=== PATIENT | male | born 1965 | race Hispanic/Latino ===

== ENCOUNTER 2021-09-10 12:53 | Emergency (ER) | payer MEDICAID ==
[2021-09-10] MEDS ORDERED: Sodium Chloride 0.9% 1000 ML 1,000 ML ONE (15:03)
[2021-09-10] MEDS: Sodium Chloride 0.9% 1000 ML 1,000 ML IV SCH (15:06)
[2021-09-10 15:12] LABS: Absolute Neutrophil Ct (ANC) 5.13 (1.4-6.9); Basophil (Absolute #) 0.05 (0-0.4); Eosinophil % 1.5 % (0.00-5.0); Eosinophil (Absolute #) 0.13 (0-0.5); Hematocrit 50.6 % (42-50); Lymphocyte (Absolute #) 2.56 (1.0-4.6); Lymphocytes % 28.6 % (24.0-44.0); Mean Cell Volume 90.2 fl (78-100); Mean Corpuscular Hemoglobin 30.3 pg (26-32); Mean Corpuscular Hgb Concent. 33.6 g/dl (32-36); Mean Platelet Volume 9.9 fl (7.5-11.0); Monocyte (Absolute #) 1.09 (0.0-1.3); Monocytes % 12.2 % (0.0-12.0); Neutrophil % 57.1 % (36.0-66.0); Platelet Count 343 K/mm3 (150-450); Red Blood Count 5.61 M/mm3 (4.1-5.6); Red Cell Distribution Width 12.7 % (11.5-14.0)
[2021-09-10 15:51] LABS: ALBUMIN 4.1 g/dL (3.5-5.0); ALKALINE PHOSPHATASE 95 U/L (38-126); ANION GAP 13.4 MEQ/L (5-15); BLOOD UREA NITROGEN 13 mg/dL (9-20); CHLORIDE 102 mmol/L (98-107); CK-Creatinine Phosphokinase 115 U/L (55-170); Calcium 9.2 mg/dL (8.4-10.2); Carbon Dioxide 25 mmol/L (22-30); Creatinine 1 0.74 mg/dL (0.66-1.25); EST GLOMERULAR FILTRATION RATE > 60.0 ML/MIN; Glucose 242 mg/dL (74-106); Potassium 4.9 mmol/L (3.5-5.1); SGOT/AST 27 U/L (17-59); SGPT/ALT 40 U/L (0-50); SODIUM 135 mmol/L (137-145); Total Protein 7.1 g/dL (6.3-8.2)
--- NOTE | 2021-09-10 16:35 | XRAY ---
Indication: Chest pain. Comparison: None Portable apical lordotic chest is clear. Heart and mediastinal structures within normal limits. Bony thorax intact with mild osteopenia and degenerative changes. Impression: Nonacute chest.
--- NOTE | 2021-09-10 17:10 | ERPHSYRPT ---
- History of Present Illness Time Seen by Provider: 09/10/21 13:30 Source: patient Exam Limitations: no limitations Patient Subjective Stated Complaint: Pt states "I started this new medication and all of a sudden my right arm went numb and my hand went purple, my vision b lurred and my arm was cold." Triage Nursing Assessment: Pt presented alert and oriented X 3, skin wpd Pt ambulates with an uprigth steady gait, able to speak in clear full setnences. PT right arm is cold, tender, Physician History: Patient is a 56-year-old male presents to emergency department for evaluation of right arm discoloration and a cold sensation of his right arm. Symptoms started last week after initiating Metformin for diabetes. Patient believes the Metformin caused his symptoms. 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 Patient states that this discoloration of his right upper extremity has resolved. However he still feels as though his right upper extremity is cold. Patient has no other complaints. No chest pain or shortness of breath. No nausea vomiting or diaphoresis. Symptoms are mild to moderate in intensity. Patient voices no other complaints or concerns at this time. Timing/Duration: week(s) (1 week) Severity: moderate Modifying Factors: Improves With: other (Patient believes Metformin caused the symptoms.) Associated Symptoms: denies symptoms Allergies/Adverse Reactions: ethinyl estradiol [From Seasonale ()] Adverse Reaction (Mild, Verified 09/10/21 13:39) levonorgestrel [From Seasonale ()] Adverse Reaction (Mild, Verified 09/10/21 13:39) Home Medications: Diclofenac Sodium [Voltaren Arthritis Pain] 100 gm TP 09/10/21 [History] Metformin HCl [Metformin ER Osmotic] 500 mg PO BID 09/10/21 [History] Silodosin 8 mg PO HS 09/10/21 [History] Hx Tetanus, Diphtheria Vaccination/Date Given: Yes Hx Influenza Vaccination/Date Given: No Hx Pneumococcal Vaccination/Date Given: No Immunizations Up to Date: Yes Travel Risk - International Travel Have you traveled outside of the country in past 3 weeks: No - Coronavirus Screening Are you exhibiting any of the following symptoms?: No Close contact with a COVID-19 positive Pt in past 14-21 Days: No - Vaccine Status Have you recieved a Covid-19 vaccination: No - Review of Systems Constitutional: No Symptoms, No Fever, No Chills Eyes: No Symptoms Ears, Nose, & Throat: No Symptoms Respiratory: No Symptoms, No Cough, No Dyspnea Cardiac: No Symptoms, No Chest Pain, No Edema, No Syncope Abdominal/Gastrointestinal: No Symptoms, No Abdominal Pain, No Nausea, No Vomiting, No Diarrhea Genitourinary Symptoms: No Symptoms, No Dysuria Musculoskeletal: No Symptoms, No Back Pain, No Neck Pain Skin: No Symptoms, No Rash Neurological: No Symptoms, No Dizziness, No Focal Weakness, No Sensory Changes Psychological: No Symptoms Endocrine: No Symptoms Hematologic/Lymphatic: No Symptoms Immunological/Allergic: No Symptoms All Other Systems: Reviewed and Negative - Past Medical History Pertinent Past Medical History: Yes Neurological History: No Pertinent History ENT History: No Pertinent History Cardiac History: No Pertinent History Respiratory History: No Pertinent History Endocrine Medical History: Diabetes Type II Musculoskeletal History: Arthritis GI Medical History: No Pertinent History History: Renal Disease Psycho-Social History: Anxiety, Depression Male Reproductive Disorders: No Pertinent History - Past Surgical History Past Surgical History: Yes Other Surgical History: back - Social History Smoking Status: Never smoker Exposure to second hand smoke: No Drug Use: none Patient Lives Alone: No - Nursing Vital Signs Nursing Vital Signs: Initial Vital Signs Temperature 97.7 F 09/10/21 13:24 Pulse Rate 99 H 09/10/21 13:24 Respiratory Rate 20 09/10/21 13:24 Blood Pressure 145/85 09/10/21 13:24 O2 Sat by Pulse Oximetry 99 09/10/21 13:24 Pain Scale Pain Intensity 3 - Physical Exam General Appearance: no apparent distress, alert Eye Exam: PERRL/EOMI, eyes nml inspection Ears, Nose, Throat Exam: normal ENT inspection, TMs normal, pharynx normal, moist mucous membranes Neck Exam: normal inspection, non-tender, supple, full range of motion Respiratory Exam: normal breath sounds, lungs clear, airway intact, No respiratory distress Cardiovascular Exam: regular rate/rhythm, normal heart sounds, normal peripheral pulses Gastrointestinal/Abdomen Exam: soft, normal bowel sounds, No tenderness, No mass Back Exam: normal inspection, normal range of motion, No CVA tenderness, No vertebral tenderness Extremity Exam: normal inspection, normal range of motion, pelvis stable Neurologic Exam: alert, oriented x 3, cooperative, normal mood/affect, nml cerebellar function, nml station & gait, sensation nml, No motor deficits Skin Exam: normal color, warm, dry, No rash Lymphatic Exam: No adenopathy SpO2 Interpretation: normal SpO2: 98 O2 Delivery: Room Air - Course Nursing assessment & vital signs reviewed: Yes EKG Interpreted by Me: RATE (89, old inferior infarct), Sinus Rhythm, NORMAL AXIS, NORMAL INTERVALS - Radiology Exams Other X-ray Interpretation: Teleradiologist Report (No comps Limited exam due to motion occluded right subclavian artery with reconstitution mid subclavian level. Normal CT a of the axilla brachial and radial arteries. Nonvisualizat ion of the ulnar artery. Recommend dedicated angiogram. Also nonoccluding right upper lobe PE) Ordered Tests: Active Orders 24 hr Category Date Time Status Cable Supervisor STAT Care 09/10/21 14:48 Active EKG-ER Only STAT Care 09/10/21 14:47 Active IV Insertion STAT Care 09/10/21 14:47 Active Pulse Oximetry (ED) STAT Care 09/10/21 14:47 Active CHEST 1 VIEW (PORTABLE) Routine Exams 09/10/21 15:25 Completed CTA UPPER EXTREMITY W/CONTRAST [CT] Stat Exams 09/10/21 18:19 Taken CBC W DIFF Stat Lab 09/10/21 15:00 Completed CK-Creatinine Phosphokinase Stat Lab 09/10/21 15:00 Completed CMP Stat Lab 09/10/21 15:00 Completed PROTIME WITH INR Stat Lab 09/10/21 20:24 Completed PTT Stat Lab 09/10/21 20:24 Completed TROPONIN Q3H Lab 09/10/21 15:00 Completed TROPONIN Q3H Lab 09/10/21 18:27 Completed TROPONIN Q3H Lab 09/10/21 21:00 Received TROPONIN Q3H Lab 09/11/21 00:00 Ordered TROPONIN Q3H Lab 09/11/21 03:00 Ordered Medication Summary Generic Name Dose Route Start Last Admin Trade Name Freq PRN Reason Stop Dose Admin Sodium Chloride 1,000 mls @ 100 mls/hr 09/10/21 15:00 09/10/21 15:06 Sodium Chloride 0.9% 1000 Ml IV 10/10/21 14:59 100 mls/hr .Q10H JANICE Administration Discontinued Medications Generic Name Dose Route Start Last Admin Trade Name Freq PRN Reason Stop Dose Admin Heparin Sodium (Beef Lung) Confirm 09/10/21 20:16 Heparin 5000 Unit/0.5 Ml Syringe Administered 09/10/21 20:17 Dose 5,000 unit .ROUTE .STK-MED ONE Heparin Sodium/Dextrose Confirm 09/10/21 20:17 Heparin 25,000 Units/D5w 250ml Premix Administered 09/10/21 20:18 Dose 25,000 units in 250 mls @ ud IV .STK-MED ONE Lab/Rad Data: Laboratory Result Diagrams 09/10/21 15:00 09/10/21 15:00 Laboratory Results 09/10/21 09/10/21 09/10/21 Range/Units 20:24 18:27 16:55 WBC (4.0-10.5) K/mm3 RBC (4.1-5.6) M/mm3 Hgb (12.5-18.0) gm/dl Hct (42-50) % MCV (78-100) fl MCH (26-32) pg MCHC (32-36) g/dl RDW (11.5-14.0) % Plt Count (150-450) K/mm3 MPV (7.5-11.0) fl Gran % (36.0-66.0) % Eos # (Auto) (0-0.5) Absolute Lymphs (auto) (1.0-4.6) Absolute Monos (auto) (0.0-1.3) Lymphocytes % (24.0-44.0) % Monocytes % (0.0-12.0) % Eosinophils % (0.00-5.0) % Basophils % (0.0-0.4) % Absolute Granulocytes (1.4-6.9) Basophils # (0-0.4) PT 11.0 (9.4-12.5) SECONDS INR 0.93 (0.8-3.0) APTT 37.8 H (25.1-36.5) SECONDS Sodium (137-145) mmol/L Potassium (3.5-5.1) mmol/L Chloride (98-107) mmol/L Carbon Dioxide (22-30) mmol/L Anion Gap (5-15) MEQ/L BUN (9-20) mg/dL Creatinine (0.66-1.25) mg/dL Estimated GFR ML/MIN Glucose (74-106) mg/dL Calcium (8.4-10.2) mg/dL Total Bilirubin (0.2-1.3) mg/dL AST (17-59) U/L ALT (0-50) U/L Alkaline Phosphatase (38-126) U/L Creatine Kinase (55-170) U/L Troponin I < 0.012 (0.000-0.034) ng/mL Serum Total Protein (6.3-8.2) g/dL Albumin (3.5-5.0) g/dL Urinalys Dipstick Clnc MAIN LAB Urine Color YELLOW (YELLOW) Urine Appearance CLEAR (CLEAR) Urine pH 5.0 (5-6) Ur Specific [place] >=1.030 (1.005-1.025) POC Urine Protein Conf TRACE (Negative) Urine Ketones NEGATIVE (NEGATIVE) Urine Nitrite NEGATIVE (NEGATIVE) Urine Bilirubin NEGATIVE (NEGATIVE) Urine Urobilinogen 0.2 (0-1) mg/dL Urine Leukocytes NEGATIVE (NEGATIVE) Urine WBC (Auto) 0-2 (0-5) /HPF Urine RBC (Auto) 0-2 (0-2) /HPF U Epithel Cells (Auto) NONE (FEW) /HPF Urine Bacteria (Auto) NONE (NEGATIVE) /HPF Urine RBC SMALL (0-5) [place]/ul Urine Mucus (Auto) SLIGHT (NEGATIVE) /HPF Ur Culture Indicated? NO Urine Glucose 500 (NEGATIVE) mg/dL 09/10/21 09/10/21 09/10/21 Range/Units 15:00 15:00 15:00 WBC 9.0 (4.0-10.5) K/mm3 RBC 5.61 H (4.1-5.6) M/mm3 Hgb 17.0 (12.5-18.0) gm/dl Hct 50.6 H (42-50) % MCV 90.2 (78-100) fl MCH 30.3 (26-32) pg MCHC 33.6 (32-36) g/dl RDW 12.7 (11.5-14.0) % Plt Count 343 (150-450) K/mm3 MPV 9.9 (7.5-11.0) fl Gran % 57.1 (36.0-66.0) % Eos # (Auto) 0.13 (0-0.5) Absolute Lymphs (auto) 2.56 (1.0-4.6) Absolute Monos (auto) 1.09 (0.0-1.3) Lymphocytes % 28.6 (24.0-44.0) % Monocytes % 12.2 H (0.0-12.0) % Eosinophils % 1.5 (0.00-5.0) % Basophils % 0.6 (0.0-0.4) % Absolute Granulocytes 5.13 (1.4-6.9) Basophils # 0.05 (0-0.4) PT (9.4-12.5) SECONDS INR (0.8-3.0) APTT (25.1-36.5) SECONDS Sodium 135 L (137-145) mmol/L Potassium 4.9 (3.5-5.1) mmol/L Chloride 102 (98-107) mmol/L Carbon Dioxide 25 (22-30) mmol/L Anion Gap 13.4 (5-15) MEQ/L BUN 13 (9-20) mg/dL Creatinine 0.74 (0.66-1.25) mg/dL Estimated GFR > 60.0 ML/MIN Glucose 242 H (74-106) mg/dL Calcium 9.2 (8.4-10.2) mg/dL Total Bilirubin 0.60 (0.2-1.3) mg/dL AST 27 (17-59) U/L ALT 40 (0-50) U/L Alkaline Phosphatase 95 (38-126) U/L Creatine Kinase 115 (55-170) U/L Troponin I < 0.012 (0.000-0.034) ng/mL Serum Total Protein 7.1 (6.3-8.2) g/dL Albumin 4.1 (3.5-5.0) g/dL Urinalys Dipstick Clnc Urine Color (YELLOW) Urine Appearance (CLEAR) Urine pH (5-6) Ur Specific [place] (1.005-1.025) POC Urine Protein Conf (Negative) Urine Ketones (NEGATIVE) Urine Nitrite (NEGATIVE) Urine Bilirubin (NEGATIVE) Urine Urobilinogen (0-1) mg/dL Urine Leukocytes (NEGATIVE) Urine WBC (Auto) (0-5) /HPF Urine RBC (Auto) (0-2) /HPF U Epithel Cells (Auto) (FEW) /HPF Urine Bacteria (Auto) (NEGATIVE) /HPF Urine RBC (0-5) [place]/ul Urine Mucus (Auto) (NEGATIVE) /HPF Ur Culture Indicated? Urine Glucose (NEGATIVE) mg/dL - Progress Progress: improved Progress Note: Case discussed with Dr. Mazariegos of [facility] who accepts transfer. We attempted regional as well however regional declined transfer as they did not have vascular surgery available. Heparin drip started. Plan of care discussed with patient. He agrees to transfer to [facility] for further evaluation and treatment. Portions of this note were created with voice recognition technology. There may be grammatical, spelling, punctuation or sound alike errors 09/10/21 21:28 Counseled pt/family regarding: lab results, diagnosis, rad results - Departure Departure Disposition: Transfer Clinical Impression: Pulmonary embolism, Occluded Rt subclav. art w reconstitutio Condition: Stable Critical Care Time: No Referrals: DOCTOR,NO FAMILY [Primary Care Provider] - Follow up/PCP as directed
[2021-09-10 17:15] LABS: Mucus SLIGHT /HPF (NEGATIVE); RBC 0-2 /HPF (0-2); WBC 0-2 /HPF (0-5)
[2021-09-10 17:17] LABS: Appearance CLEAR (CLEAR); Bilirubin NEGATIVE (NEGATIVE); Glucose 500 mg/dL (NEGATIVE); Ketones NEGATIVE (NEGATIVE); Nitrite NEGATIVE (NEGATIVE); Protein,Urine Dip TRACE (Negative); RBC SMALL Ery/ul (0-5); Specific Gravity >=1.030 (1.005-1.025); Urobilinogen 0.2 mg/dL (0-1)
[2021-09-10 17:18] LABS: Dipstick done @ ? MAIN LAB; Urine Cultured Indicated? NO
[2021-09-10] MEDS ORDERED: Heparin 5000 UNITS/0.5 ML (HIGH RISK MED) ONE (20:16)
[2021-09-10] MEDS ORDERED: Heparin 25,000 units/D5W 250ML PREMIX 25,000 UNITS/250 ML BAG IV ONE (20:17)
[2021-09-10 20:26] VITALS: O2SAT 98
[2021-09-10 20:33] LABS: INR 0.93 (0.8-3.0)
[2021-09-10 20:35] LABS: PTT 37.8 SECONDS (25.1-36.5)
[2021-09-10 21:38] VITALS: BP 148/100; PULSE 76
[2021-09-10 21:56] LABS: INFLUENZA A NEGATIVE (NEGATIVE); INFLUENZA B NEGATIVE (NEGATIVE); RESPIRATORY SYNCTIAL VIRUS NEGATIVE (Negative); SARS-CoV-2 Xpert Express NEGATIVE (NEGATIVE)
--- NOTE | 2021-09-11 08:37 | XRAY ---
Indication: Sciatic right arm. Intermittent cold and numbness one week. No known injury. Conventional CTA right upper extremity was performed using 100 cc Isovue 370 contrast. Two-dimensional sagittal and coronal reformatted images obtained. Additional three-dimensional reformatted images obtained using separate workstation. Comparison: None Several images are degraded by motion artifact. Visualized aortic arch demonstrates normal patent branching right brachycephalic, left common carotid, and left subclavian arteries. Origin and proximal right subclavian artery is occluded. There is reconstitution at the level of the mid subclavian artery. More upper extremity arteries are attenuated without critical stenosis/obstruction. At the level of the forearm, only the radial artery is visualized. Ulnar artery presumed occluded. Visualized right lung clear. Incidental nonoccluding pulmonary emboli seen in the right upper lobe pulmonary artery. Mild degenerative changes throughout the thoracic spine. No acute fracture or suspicious bony lesions. Limited upper abdomen demonstrates right mid renal cortical thinning/scarring. Impression: 1. Occluded origin/proximal right subclavian and ulnar arteries. 2. Incidental nonoccluding right upper lobe pulmonary emboli.
== END 2021-09-10 22:12 | disposition short-term general hospital (02) ==
LOC: ED 12:53
DX: I26.99 Other pulmonary embolism without acute cor pulmonale (principal); I74.2 Embolism and thrombosis of arteries of the upper extremities; I70.8 Atherosclerosis of other arteries; E11.9 Type 2 diabetes mellitus without complications; Z79.899 Other long term (current) drug therapy
CPT/HCPCS: 0241U; 36000; 36415; 71045; 73206; 80053; 81015; 82550; 84484; 85025; 85610; 85730; 93005; 93041; 94760; 99285; J1644

== ENCOUNTER 2022-10-28 20:46 | Emergency (ER) | payer OTHER ==
[2022-10-28 21:46] LABS: Absolute Neutrophil Ct (ANC) 15.53 x10^3/uL (1.4-6.9); BASOPHIL % 0.4 % (0.0-0.4); Basophil (Absolute #) 0.08 x10^3/uL (0-0.4); Eosinophil % 0.3 % (0.00-5.0); Eosinophil (Absolute #) 0.07 x10^3/uL (0-0.5); Hematocrit 52.8 % (42-50); Hemoglobin 17.3 g/dL (12.5-18.0); IMMATURE GRAN # 0.19 x10^3u/L (0.00-0.03); IMMATURE GRAN % 0.9 % (0.00-0.4); Lymphocyte (Absolute #) 2.74 x10^3/uL (1.0-4.6); Lymphocytes % 13.2 % (24.0-44.0); Mean Cell Volume 89.2 fL (78-100); Mean Corpuscular Hemoglobin 29.2 pg (26-32); Mean Corpuscular Hgb Concent. 32.8 g/dL (32-36); Mean Platelet Volume 10.2 fL (7.5-11.0); Monocytes % 10.6 % (0.0-12.0); Neutrophil % 74.6 % (36.0-66.0); Platelet Count 276 x10^3/uL (150-450); Red Blood Count 5.92 x10^6/uL (4.1-5.6); White Blood Count 20.8 x10^3/uL (4.0-10.5)
[2022-10-28 22:00] LABS: ALKALINE PHOSPHATASE 103 U/L (38-126); ANION GAP 18.3 MEQ/L (5-15); BLOOD UREA NITROGEN 25 mg/dL (9-20); CHLORIDE 93 mmol/L (98-107); Calcium 9.2 mg/dL (8.4-10.2); Carbon Dioxide 27 mmol/L (22-30); Creatinine 1 1.13 mg/dL (0.66-1.25); EST GLOMERULAR FILTRATION RATE > 60.0 ML/MIN; Glucose 371 mg/dL (74-106); LIPASE 95 U/L (23-300); Potassium 4.6 mmol/L (3.5-5.1); SGOT/AST 33 U/L (17-59); SGPT/ALT 25 U/L (0-50); SODIUM 134 mmol/L (137-145); Total Protein 7.5 g/dL (6.3-8.2)
[2022-10-28] MEDS ORDERED: Sodium Chloride 0.9% 1000 ML 1,000 ML IV STA (22:34)
[2022-10-28] MEDS ORDERED: PIPERACILLIN/TAZOBACTAM 3.375 GM in Sodium Chloride 100ML MINI-BAG PLUS 100 ML IV ONE (22:35)
--- NOTE | 2022-10-28 22:45 | ERPHSYRPT ---
- History of Present Illness Time Seen by Provider: 10/28/22 22:40 Source: patient Exam Limitations: no limitations Patient Subjective Stated Complaint: pt states that my shoulder has been hurting for weeks Triage Nursing Assessment: pt ambulated into er; pt is axo x4; c/o left shoulder pain; pt denies injury or trauma to LUE; LUE is cool to the touch; left radial pulse present; good cap refill to LUE; hypertensive; tachycardic; no respiratory distress present Physician History: Patient is a 57-year-old male presents to our ED with multiple complaints. Patient states his left shoulder left leg and abdomen have been hurting for approximately 1 month. Pain is constant. No trauma. No fever. No nausea or vomiting. Patient abdominal pain is mostly in the epigastric region. Patient denies chest pain. No nausea vomiting or diaphoresis. Symptoms are progressive. Symptoms are moderate in intensity. Palpation to the epigastrium reproduces pain. Pain at the left upper or lower extremities are not reproduci ble. Patient declined pain medication. Patient has a resting tachycardia observed on security monitor. Heart rate approximately 110-115. Patient reports a history of diabetes. He states he is otherwise healthy. He voices no other complaints or concerns at this time. Portions of this note were created with voice recognition technology. There may be grammatical, spelling, punctuation or sound alike errors Timing/Duration: week(s) (1 month) Severity: moderate Modifying Factors: Improves With: nothing Associated Symptoms: denies symptoms Allergies/Adverse Reactions: ethinyl estradiol [From Seasonale ()] Adverse Reaction (Mild, Verified 10/28/22 20:56) levonorgestrel [From Seasonale ()] Adverse Reaction (Mild, Verified 10/28/22 20:56) Home Medications: Metformin HCl [Metformin ER Osmotic] 1,000 mg PO BID 09/10/21 [History] Cetirizine HCl 10 mg PO DAILY 10/28/22 [History] Dicyclomine HCl 20 mg [Bentyl 20 mg] 10 mg PO Q6HPRN PRN 10/28/22 [History] Pantoprazole Sodium [Protonix] 40 mg PO 10/28/22 [History] Hx Tetanus, Diphtheria Vaccination/Date Given: Yes Hx Influenza Vaccination/Date Given: No Hx Pneumococcal Vaccination/Date Given: No Travel Risk - International Travel Have you traveled outside of the country in past 3 weeks: No - Coronavirus Screening Are you exhibiting any of the following symptoms?: No Close contact with a COVID-19 positive Pt in past 14-21 Days: No - Vaccine Status Have you recieved a Covid-19 vaccination: No - Review of Systems Constitutional: No Symptoms, No Fever, No Chills Eyes: No Symptoms Ears, Nose, & Throat: No Symptoms Respiratory: No Symptoms, No Cough, No Dyspnea Cardiac: No Symptoms, No Chest Pain, No Edema, No Syncope Abdominal/Gastrointestinal: No Symptoms, No Abdominal Pain, No Nausea, No Vomiting, No Diarrhea Genitourinary Symptoms: No Symptoms, No Dysuria Musculoskeletal: No Symptoms, No Back Pain, No Neck Pain Skin: No Symptoms, No Rash Neurological: No Symptoms, No Dizziness, No Focal Weakness, No Sensory Changes Psychological: No Symptoms Endocrine: No Symptoms Hematologic/Lymphatic: No Symptoms Immunological/Allergic: No Symptoms All Other Systems: Reviewed and Negative - Past Medical History Pertinent Past Medical History: Yes Neurological History: No Pertinent History ENT History: No Pertinent History Cardiac History: No Pertinent History Respiratory History: No Pertinent History Endocrine Medical History: Diabetes Type II Musculoskeletal History: Arthritis GI Medical History: No Pertinent History History: Renal Disease Psycho-Social History: Anxiety, Depression Male Reproductive Disorders: No Pertinent History - Past Surgical History Past Surgical History: Yes Musculoskeletal: Orthopedic Surgery Other Surgical History: back, left knee - Social History Smoking Status: Former smoker Exposure to second hand smoke: No Drug Use: none Patient Lives Alone: No - Nursing Vital Signs Nursing Vital Signs: Initial Vital Signs Temperature 97.6 F 10/28/22 21:02 Pulse Rate 117 H 10/28/22 21:02 Respiratory Rate 18 10/28/22 21:02 Blood Pressure 144/125 10/28/22 21:02 O2 Sat by Pulse Oximetry 96 10/28/22 21:02 Pain Scale Pain Intensity [] 10 Pain Intensity 10 - Physical Exam General Appearance: no apparent distress, alert Eye Exam: PERRL/EOMI, eyes nml inspection Ears, Nose, Throat Exam: normal ENT inspection, TMs normal, pharynx normal, moist mucous membranes Neck Exam: normal inspection, non-tender, supple, full range of motion Respiratory Exam: normal breath sounds, lungs clear, airway intact, No respiratory distress Cardiovascular Exam: regular rate/rhythm, normal heart sounds, normal peripheral pulses Gastrointestinal/Abdomen Exam: soft, normal bowel sounds, No tenderness, No mass Back Exam: normal inspection, normal range of motion, No CVA tenderness, No vertebral tenderness Extremity Exam: normal inspection, normal range of motion, pelvis stable Neurologic Exam: alert, oriented x 3, cooperative, normal mood/affect, nml cerebellar function, nml station & gait, sensation nml, No motor deficits Skin Exam: normal color, warm, dry, No rash Lymphatic Exam: No adenopathy SpO2 Interpretation: normal SpO2: 94 O2 Delivery: Room Air - Course Nursing assessment & vital signs reviewed: Yes - CT Exams Abdomen/Pelvis CT Interpretation: Tele-radiologist Report (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) Ordered Tests: Active Orders 24 hr Category Date Time Status IV Insertion STAT Care 10/28/22 21:35 Active ABDOMEN AND PELVIS W CONTRAST [CT] Stat Exams 10/28/22 22:33 Completed CBC W DIFF Stat Lab 10/28/22 21:43 Completed CMP Stat Lab 10/28/22 21:43 Completed LIPASE Stat Lab 10/28/22 21:43 Completed TROPONIN Q4H Lab 10/28/22 21:43 Completed TROPONIN Q4H Lab 10/29/22 01:27 Completed TROPONIN Q4H Lab 10/29/22 05:45 Ordered Medication Summary Discontinued Medications Generic Name Dose Route Start Last Admin Trade Name Freq PRN Reason Stop Dose Admin Sodium Chloride 1,000 mls @ 999 mls/hr 10/28/22 22:34 10/29/22 00:39 Sodium Chloride 0.9% 1000 Ml IV 10/28/22 23:34 Infused .Q1H1M STA Infusion Piperacillin Sod/Tazobactam 100 mls @ 200 mls/hr 10/28/22 22:35 10/28/22 22:48 Sod 3.375 gm/ Sodium Chloride IV 10/28/22 23:04 200 mls/hr STAT ONE Administration Sodium Chloride Confirm 10/28/22 22:47 Sodium Chloride 100ml Mini-Bag Plus Administered 10/28/22 22:48 Dose 100 mls @ ud IV .STK-MED ONE Sodium Chloride Confirm 10/28/22 22:47 Sodium Chloride 0.9% 1000 Ml Administered 10/28/22 22:48 Dose 1,000 mls @ ud .ROUTE .STK-MED ONE Piperacillin Sod/Tazobactam Sod Confirm 10/28/22 22:46 Piperacillin/Tazobactam Sodium 3.375 Gm Vial Administered 10/28/22 22:47 Dose 3.375 gm IV .STK-MED ONE Lab/Rad Data: Laboratory Result Diagrams 10/28/22 21:43 10/28/22 21:43 Laboratory Results 10/29/22 10/28/22 10/28/22 Range/Units 01:27 21:43 21:43 WBC (4.0-10.5) x10^3/uL RBC (4.1-5.6) x10^6/uL Hgb (12.5-18.0) g/dL Hct (42-50) % MCV (78-100) fL MCH (26-32) pg MCHC (32-36) g/dL RDW (11.5-14.0) % Plt Count (150-450) x10^3/uL MPV (7.5-11.0) fL Gran % (36.0-66.0) % Immature Gran % (Auto) (0.00-0.4) % Nucleat RBC Rel Count (0.00-0.1) % Eos # (Auto) (0-0.5) x10^3/uL Immature Gran # (Auto) (0.00-0.03) x10^3u/L Absolute Lymphs (auto) (1.0-4.6) x10^3/uL Absolute Monos (auto) (0.0-1.3) x10^3/uL Absolute Nucleated RBC (0.00-0.01) x10^3u/L Lymphocytes % (24.0-44.0) % Monocytes % (0.0-12.0) % Eosinophils % (0.00-5.0) % Basophils % (0.0-0.4) % Absolute Granulocytes (1.4-6.9) x10^3/uL Basophils # (0-0.4) x10^3/uL Sodium 134 L (137-145) mmol/L Potassium 4.6 (3.5-5.1) mmol/L Chloride 93 L (98-107) mmol/L Carbon Dioxide 27 (22-30) mmol/L Anion Gap 18.3 H (5-15) MEQ/L BUN 25 H (9-20) mg/dL Creatinine 1.13 (0.66-1.25) mg/dL Estimated GFR > 60.0 ML/MIN Glucose 371 H (74-106) mg/dL Calcium 9.2 (8.4-10.2) mg/dL Total Bilirubin 1.00 (0.2-1.3) mg/dL AST 33 (17-59) U/L ALT 25 (0-50) U/L Alkaline Phosphatase 103 (38-126) U/L Troponin I < 0.012 < 0.012 (0.000-0.034) ng/mL Serum Total Protein 7.5 (6.3-8.2) g/dL Albumin 4.0 (3.5-5.0) g/dL Lipase 95 (23-300) U/L / Range/Units 21:43 WBC 20.8 H (4.0-10.5) x10^3/uL RBC 5.92 H (4.1-5.6) x10^6/uL Hgb 17.3 (12.5-18.0) g/dL Hct 52.8 H (42-50) % MCV 89.2 (78-100) fL MCH 29.2 (26-32) pg MCHC 32.8 (32-36) g/dL RDW 12.0 (11.5-14.0) % Plt Count 276 (150-450) x10^3/uL MPV 10.2 (7.5-11.0) fL Gran % 74.6 H (36.0-66.0) % Immature Gran % (Auto) 0.9 H (0.00-0.4) % Nucleat RBC Rel Count 0.0 (0.00-0.1) % Eos # (Auto) 0.07 (0-0.5) x10^3/uL Immature Gran # (Auto) 0.19 H (0.00-0.03) x10^3u/L Absolute Lymphs (auto) 2.74 (1.0-4.6) x10^3/uL Absolute Monos (auto) 2.20 H (0.0-1.3) x10^3/uL Absolute Nucleated RBC 0.00 (0.00-0.01) x10^3u/L Lymphocytes % 13.2 L (24.0-44.0) % Monocytes % 10.6 (0.0-12.0) % Eosinophils % 0.3 (0.00-5.0) % Basophils % 0.4 (0.0-0.4) % Absolute Granulocytes 15.53 H (1.4-6.9) x10^3/uL Basophils # 0.08 (0-0.4) x10^3/uL Sodium (137-145) mmol/L Potassium (3.5-5.1) mmol/L Chloride (98-107) mmol/L Carbon Dioxide (22-30) mmol/L Anion Gap (5-15) MEQ/L BUN (9-20) mg/dL Creatinine (0.66-1.25) mg/dL Estimated GFR ML/MIN Glucose (74-106) mg/dL Calcium (8.4-10.2) mg/dL Total Bilirubin (0.2-1.3) mg/dL AST (17-59) U/L ALT (0-50) U/L Alkaline Phosphatase (38-126) U/L Troponin I (0.000-0.034) ng/mL Serum Total Protein (6.3-8.2) g/dL Albumin (3.5-5.0) g/dL Lipase (23-300) U/L - Progress Progress: improved Progress Note: Case discussed with on-call general surgery who feels patient should be transferred. Patient has a history of blood clots. Patient has not been on his Coumadin. Patient will likely require angiogram. 10/29/22 00:[address] Sanchez general surgeon at [facility] who accepts transfer. We will keep patient n.p.o. 10/29/22 01:08 57-year-old male presents to our ED for evaluation of abdominal pain. Patient states abdominal pain started approximately 3 weeks ago. Patient states the pain was severe. Patient states today he developed ongoing abdominal pain coupled with some pain in his left arm and left leg. On exam his left arm was somewhat cool to touch. However radial pulse palpable. Cap refill less than 2 seconds. Left lower extremity neurovascular intact distally. Compartments are soft. Patient advised that he has been off of Coumadin for approximately 2 months. Patient unable to obtain his prescription. 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 Patient has leukocytosis of 20. Patient received a dose of Zosyn in our ED. Patient states he had a blood clot removed from his right upper extremity at [facility] is requesting transfer there. Our on- call surgeon feels patient should be transferred to higher level of care. No need for NG tube per receiving surgeon. If patient does have a embolism as a lead point causing a volvulus patient does not a candidate for blood thinner/heparin Test ordered include CBC which reveals a leukocytosis. CMP lipase troponin negative. Zosyn antibiotic infused. Patient declines pain medication. He states that any pain medication especially narcotic-based pain medication will make him hyperactive. Patient will be going to room [facility]. 10/29/22 01:26 Complexity of problem addressed is high. Threat to bodily function. Patient has a volvulus which is threatening to bowel function No critical care time. Complexity of data reviewed and analyzed is moderate. Test ordered. Test independently reviewed and analyzed by Dr. Lozada. Management discussed with general surgeon at [facility]. And Dr. Sanchez Surgeon at [facility]. Risk of complication and or risk of morbidity/mortality of patient management is high. Patient will require hospitalization. Patient transferred via helicopter to [facility]. Portions of this note were created with voice recognition technology. There may be grammatical, spelling, punctuation or sound alike errors 10/29/22 02:42 Discussed with : Tawanna Will see patient in: office Counseled pt/family regarding: lab results, diagnosis, rad results - Departure Departure Disposition: Transfer Clinical Impression: Abdominal pain, Leukocytosis, Jejunal volvulus Condition: Stable Critical Care Time: No Referrals: DOCTOR,NO FAMILY [Primary Care Provider] - Follow up/PCP as directed
[2022-10-28] MEDS ORDERED: PIPERACILLIN/TAZOBACTAM IV ONE (22:46)
[2022-10-28] MEDS ORDERED: Sodium Chloride 100ML MINI-BAG PLUS 100 ML IV ONE (22:47)
[2022-10-28] MEDS ORDERED: Sodium Chloride 0.9% 1000 ML 1,000 ML ONE (22:47)
--- NOTE | 2022-10-29 00:37 | XRAY ---
CLINICAL HISTORY:pain COMPARISON:None; TECHNIQUES:CT scan of the abdomen and pelvis was performed with IV contrast. 80 ml of Inj. Isovue ( 370 mg/ 100ml) was administered as intravenous contrast agent. Coronal and sagittal reconstructive images were also obtained; FINDINGS: Abdomen:. Abnormal dilatation of a jejunal loop with mild circumferential mural thickening noted which appears to be inverted on itself, with a maximum caliber of 3.7cm. Swirling of the superior mesenteric vein is seen with an altered relationship between SMA and SMV. SMV is seen anterior and left of SMA. No free air/fluid was seen in the abdomen to suggest perforation. The liver is normal in size and measures 00 cm. No focal or diffuse parenchymal abnormality. The portal vein, intrahepatic biliary radicals, and the bile ducts are normal. The spleen, pancreas, and adrenal glands are unremarkable. The kidneys are normal in size and shape. No calculi or hydronephrosis. A few small simple cortical cysts were noted on both sides. Few hypodense wedge-shaped areas are seen at the lower pole of both kidneys, likely suggesting old infarcts. The gallbladder is normal. No pericholecystic collection or radio-dense calculi in the gall bladder. The ascending colon, the transverse colon, and the descending colon visualized small bowel loops are unremarkable. uncomplicated colonic diverticulosis was noted involving the sigmoid colon. There is no evidence of significant enlargement of the mesenteric or retroperitoneal lymph nodes. Pelvis:. The urinary bladder is unremarkable. The rectosigmoid colon is unremarkable. The prostate is mildly enlarged in size with prostatic calcification. The pelvic vasculature is unremarkable. No evidence of pelvic lymphadenopathy. The lumbar spine shows degenerative changes. 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 2-In contrast to the previous CT study dated 07/24/21, there is interval development of jejunal volvulus and renal infarcts. [facility] ER was called at [phone] at 11:26 PM [employer], 10/28/[address] Lozada was informed about significant medical findings. Electronically Signed by: Kellee Maravilla MD. (10/28/2022 23:32:22 [employer])
[2022-10-29 01:15] VITALS: O2SAT 94
[2022-10-29 02:05] VITALS: BP 125/90; PULSE 101
== END 2022-10-29 02:55 | disposition short-term general hospital (02) ==
LOC: ED 20:46
DX: K56.2 Volvulus (principal); R10.13 Epigastric pain; D72.829 Elevated white blood cell count, unspecified; M25.512 Pain in left shoulder; M79.605 Pain in left leg; E11.9 Type 2 diabetes mellitus without complications; Z79.84 Long term (current) use of oral hypoglycemic drugs; Z79.899 Other long term (current) drug therapy; Z28.310 Unvaccinated for COVID-19
CPT/HCPCS: 36000; 36415; 74177; 80053; 83690; 84484; 85025; 96360; 96365; 99285

== ENCOUNTER 2023-06-20 15:12 | Emergency (ER) | payer OTHER ==
[2023-06-20] MEDS ORDERED: Sodium Chloride 0.9% 1000 ML 1,000 ML IV STA (15:48)
[2023-06-20 16:13] LABS: Absolute Neutrophil Ct (ANC) 5.26 x10^3/uL (1.4-6.9); BASOPHIL % 0.6 % (0.0-0.4); Basophil (Absolute #) 0.05 x10^3/uL (0-0.4); Eosinophil % 1.6 % (0.00-5.0); Eosinophil (Absolute #) 0.14 x10^3/uL (0-0.5); Hemoglobin 17.5 g/dL (12.5-18.0); IMMATURE GRAN # 0.04 x10^3u/L (0.00-0.03); IMMATURE GRAN % 0.5 % (0.00-0.4); Lymphocyte (Absolute #) 2.35 x10^3/uL (1.0-4.6); Lymphocytes % 26.6 % (24.0-44.0); Mean Cell Volume 90.1 fL (78-100); Mean Corpuscular Hemoglobin 30.3 pg (26-32); Mean Corpuscular Hgb Concent. 33.7 g/dL (32-36); Monocyte (Absolute #) 0.98 x10^3/uL (0.0-1.3); Monocytes % 11.1 % (0.0-12.0); Neutrophil % 59.6 % (36.0-66.0); Platelet Count 354 x10^3/uL (150-450); Red Blood Count 5.77 x10^6/uL (4.1-5.6); White Blood Count 8.8 x10^3/uL (4.0-10.5)
[2023-06-20] MEDS ORDERED: Sodium Chloride 0.9% 1000 ML 1,000 ML ONE (16:13)
[2023-06-20 16:28] LABS: INR 1.2 (0.8-3.0); PROTIME 12.9 SECONDS (9.4-12.5)
[2023-06-20 16:29] LABS: ALBUMIN 3.9 g/dL (3.5-5.0); BILIRUBIN,TOTAL 0.6 mg/dL (0.2-1.3); Calcium 8.7 mg/dL (8.4-10.2); Creatinine 1 0.83 mg/dL (0.66-1.25); EST GLOMERULAR FILTRATION RATE 102.1 ML/MIN; Potassium 4.5 mmol/L (3.5-5.1); Total Protein 7.1 g/dL (6.3-8.2)
[2023-06-20 16:36] LABS: Appearance Cloudy (Clear); Bacteria Many /HPF (None Seen); Bilirubin Negative (Negative); Blood Large (Negative); Epithelial Cells None Seen /HPF (None Seen); Glucose, Urine 500 mg/dL (Negative); Hyaline Casts NONE SEEN /LPF (0-2); Ketones Trace (Negative); Leukocyte Esterase Moderate (Negative); Nitrite Positive (Negative); Ph 6.5 (4.6-8.0); Protein,Urine Dip 30 (Negative); RBC 51-100 /HPF (0-5); Urobilinogen 0.2 mg/dL (0.2); WBC >100 /HPF (0-5)
[2023-06-20 16:37] LABS: ADD URINE CULTURE? YES (NO); Calcium Oxalate Crystals 0-2 /HPF (None Seen)
--- NOTE | 2023-06-20 16:56 | XRAY ---
CLINICAL HISTORY:HEADACHE COMPARISON:None. TECHNIQUE:An axial non-contrast CT scan of the brain was performed from the skull base to the high parietal region. FINDINGS: There is an area of fairly- to well-circumscribed hypoattenuation in the left cerebellar hemisphere. The cortical sulci, fissures, basal cisterns, and ventricles are normal in size and configuration. Carvalho-white matter differentiation is maintained. No midline shifts or deformity. No intracranial space-occupying lesion noted. There are coarse calcifications in the falx cerebri. Normal CT appearance of the brainstem and cerebellar peduncles. The IACs are unremarkable. The cerebello-pontine angles are clear. The pituitary gland, the pineal gland, and the optic chiasm are unremarkable. The osseous structures in the skull base are unremarkable. No definite calvarium fractures. The scanned paranasal sinuses are clear. There is sclerosis of some of the right mastoid air cells, with opacification of the rest. IMPRESSION: 1. Left cerebellar chronic infarction. 2. CT may not detect early acute infarct. If clinically suspicious, MRI with DWI is suggested for further evaluation. 3. Right mastoid effusion with sclerotic changes. Electronically Signed by: Kellee Maravilla MD. (06/20/2023 16:52:56 EST)
[2023-06-20] MEDS ORDERED: ROCEPHIN 2 Gm-D5w 50ML BAG** 2 G/50 ML IVPB IV STA (17:19)
--- NOTE | 2023-06-20 17:22 | ERPHSYRPT ---
- History of Present Illness Time Seen by Provider: 06/20/23 15:21 Historian: patient Exam Limitations: no limitations Patient Subjective Stated Complaint: pt here for blood in urine x2. burning with urination, no blood in stools, he is on coumadin Triage Nursing Assessment: pt alert, resp easy, walked in with a cane, skin w/d/p. 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 Hematuria is improved today but still have some dysuria and suprapubic pain. No fever or chills reported. Reports nausea but no vomiting or diarrhea. No known sick contact. Also reports having left-sided headache moderate intensity dull aching intermittently. Reports having sharp cramping lower abdomen 8-9/10 intensity without any significant aggravating or relieving factors. Allergies/Adverse Reactions: ethinyl estradiol [From Seasonale ()] Adverse Reaction (Mild, Verified 10/28/22 20:56) levonorgestrel [From [facility] (91)] Adverse Reaction (Mild, Verified 10/28/22 20:56) Home Medications: Metformin HCl [Metformin ER Osmotic] 1,000 mg PO BID 09/10/21 [History] Warfarin Sodium 5 mg [Coumadin] 6 mg PO DAILY 06/20/23 [History] Hx Tetanus, Diphtheria Vaccination/Date Given: No Hx Influenza Vaccination/Date Given: No Hx Pneumococcal Vaccination/Date Given: No Immunizations Up to Date: Yes Travel Risk - International Travel Have you traveled outside of the country in past 3 weeks: No - Coronavirus Screening Are you exhibiting any of the following symptoms?: No Close contact with a COVID-19 positive Pt in past 14-21 Days: No - Vaccine Status Have you recieved a Covid-19 vaccination: No - Review of Systems Constitutional: No Symptoms Eyes: No Symptoms Ears, Nose, & Throat: No Symptoms Respiratory: No Symptoms Cardiac: No Symptoms Abdominal/Gastrointestinal: Abdominal Pain, Nausea Genitourinary Symptoms: Dysuria, Frequency, Hematuria Musculoskeletal: No Symptoms Skin: No Symptoms Neurological: Headache, No Dizziness, No Focal Weakness, No Gait Changes, No Lethargy, No Paralysis, No Parasthesia, No Sensory Changes, No Speech Changes, No Tics, No Tremors, No Vertigo Psychological: No Symptoms Endocrine: No Symptoms Hematologic/Lymphatic: Blood Clots Immunological/Allergic: No Symptoms - Past Medical History Pertinent Past Medical History: Yes Neurological History: No Pertinent History ENT History: No Pertinent History Cardiac History: No Pertinent History Respiratory History: No Pertinent History Endocrine Medical History: Diabetes Type II Musculoskeletal History: Arthritis GI Medical History: No Pertinent History History: Renal Disease Psycho-Social History: Anxiety, Depression Male Reproductive Disorders: No Pertinent History - Past Surgical History Past Surgical History: Yes Musculoskeletal: Orthopedic Surgery Other Surgical History: back, left knee - Social History Smoking Status: Former smoker Exposure to second hand smoke: No Drug Use: none Patient Lives Alone: No - Nursing Vital Signs Nursing Vital Signs: Initial Vital Signs Pulse Rate 92 H 06/20/23 15:31 Respiratory Rate 24 06/20/23 15:31 Blood Pressure 113/80 06/20/23 15:31 O2 Sat by Pulse Oximetry 92 L 06/20/23 15:31 Pain Scale Pain Intensity 2 - Physical Exam General Appearance: no apparent distress, alert Eye Exam: PERRL/EOMI, eyes nml inspection Ears, Nose, Throat Exam: normal ENT inspection, TMs normal, pharynx normal Neck Exam: normal inspection, non-tender, supple, full range of motion Respiratory Exam: normal breath sounds, lungs clear Cardiovascular Exam: regular rate/rhythm, normal heart sounds Gastrointestinal/Abdomen Exam: soft, normal bowel sounds, tenderness (Suprapubic/right lower quadrant minimal guarding and tenderness without rebound tenderness.) Extremity Exam: normal inspection, normal range of motion Neurologic Exam: alert, oriented x 3, cooperative, manager etl II-XII nml as tested, normal mood/affect, nml cerebellar function, nml station & gait, sensation nml, No motor deficits Skin Exam: normal color SpO2 Interpretation: normal SpO2: 95 O2 Delivery: Room Air Ordered Tests: Active Orders 24 hr Category Date Time Status IV Insertion STAT Care 06/20/23 15:48 Active NPO (ED) STAT Care 06/20/23 15:48 Active ABDOMEN AND PELVIS W CONTRAST [CT] Stat Exams 06/20/23 15:48 Completed HEAD WITHOUT CONTRAST [CT] Stat Exams 06/20/23 15:49 Completed CBC W DIFF Stat Lab 06/20/23 16:09 Completed CMP Stat Lab 06/20/23 16:09 Completed CULTURE,URINE Stat Lab 06/20/23 16:09 Received LIPASE Stat Lab 06/20/23 16:09 Completed Lactic Acid Stat Lab 06/20/23 16:05 Completed PROTIME WITH INR Stat Lab 06/20/23 16:09 Completed UA W/RFX UR CULTURE Stat Lab 06/20/23 16:09 Completed Medication Summary Discontinued Medications Generic Name Dose Route Start Last Admin Trade Name Delvis PRN Reason Stop Dose Admin Sodium Chloride 1,000 mls @ 999 mls/hr 06/20/23 15:48 06/20/23 17:57 Sodium Chloride 0.9% 1000 Ml IV 06/20/23 16:48 Infused .Q1H1M STA Infusion Sodium Chloride Confirm 06/20/23 16:13 Sodium Chloride 0.9% 1000 Ml Administered 06/20/23 16:14 Dose 1,000 mls @ ud .ROUTE .STK-MED ONE Ceftriaxone Sodium/Dextrose 2 g in 50 mls @ 100 mls/hr 06/20/23 17:19 06/20/23 17:51 Rocephin 2 Gm-D5w 50ml Bag IV 06/20/23 17:48 100 mls/hr STAT STA 100 mls/hr Administration Ceftriaxone Sodium/Dextrose Confirm 06/20/23 17:41 Rocephin 2 Gm-D5w 50ml Bag Administered 06/20/23 17:42 Dose 2 g in 50 mls @ ud IV .STK-MED ONE Lab/Rad Data: Laboratory Result Diagrams 06/20/23 16:09 06/20/23 16:09 Laboratory Results 06/20/23 06/20/23 06/20/23 Range/Units 16:09 16:09 16:09 WBC 8.8 (4.0-10.5) x10^3/uL RBC 5.77 H (4.1-5.6) x10^6/uL Hgb 17.5 (12.5-18.0) g/dL Hct 52.0 H (42-50) % MCV 90.1 (78-100) fL MCH 30.3 (26-32) pg MCHC 33.7 (32-36) g/dL RDW 13.0 (11.5-14.0) % Plt Count 354 (150-450) x10^3/uL MPV 10.0 (7.5-11.0) fL Gran % 59.6 (36.0-66.0) % Immature Gran % (Auto) 0.5 H (0.00-0.4) % Nucleat RBC Rel Count 0.0 (0.00-0.1) % Eos # (Auto) 0.14 (0-0.5) x10^3/uL Immature Gran # (Auto) 0.04 H (0.00-0.03) x10^3u/L Absolute Lymphs (auto) 2.35 (1.0-4.6) x10^3/uL Absolute Monos (auto) 0.98 (0.0-1.3) x10^3/uL Absolute Nucleated RBC 0.00 (0.00-0.01) x10^3u/L Lymphocytes % 26.6 (24.0-44.0) % Monocytes % 11.1 (0.0-12.0) % Eosinophils % 1.6 (0.00-5.0) % Basophils % 0.6 (0.0-0.4) % Absolute Granulocytes 5.26 (1.4-6.9) x10^3/uL Basophils # 0.05 (0-0.4) x10^3/uL PT 12.9 H (9.4-12.5) SECONDS INR 1.20 (0.8-3.0) Sodium 134 L (137-145) mmol/L Potassium 4.5 (3.5-5.1) mmol/L Chloride 107 (98-107) mmol/L Carbon Dioxide 19 L (22-30) mmol/L Anion Gap 13.0 (5-15) MEQ/L BUN 14 (9-20) mg/dL Creatinine 0.83 (0.66-1.25) mg/dL Estimated GFR 102.1 ML/MIN Glucose 175 H (74-106) mg/dL Lactic Acid (0.4-2.0) Calcium 8.7 (8.4-10.2) mg/dL Total Bilirubin 0.60 (0.2-1.3) mg/dL AST 27 (17-59) U/L ALT 37 (0-50) U/L Alkaline Phosphatase 82 (38-126) U/L Serum Total Protein 7.1 (6.3-8.2) g/dL Albumin 3.9 (3.5-5.0) g/dL Lipase 127 (23-300) U/L Urine Color (Yellow) Urine Appearance (Clear) Urine pH (4.6-8.0) Ur Specific [place] (1.005-1.030) Urine Protein (Negative) Urine Glucose (UA) (Negative) mg/dL Urine Ketones (Negative) Urine Blood (Negative) Urine Nitrite (Negative) Urine Bilirubin (Negative) Urine Urobilinogen (0.2) mg/dL Ur Leukocyte Esterase (Negative) U Hyaline Cast (Auto) (0-2) /LPF Urine Microscopic RBC (0-5) /HPF Urine Microscopic WBC (0-5) /HPF Ur Epithelial Cells (None Seen) /HPF Calcium Oxalate Crystal (None Seen) /HPF Urine Bacteria (None Seen) /HPF Urine Yeast (Budding) (None Seen) /HPF Urine Culture Reflexed (NO) 06/20/23 06/20/23 Range/Units 16:09 16:05 WBC (4.0-10.5) x10^3/uL RBC (4.1-5.6) x10^6/uL Hgb (12.5-18.0) g/dL Hct (42-50) % MCV (78-100) fL MCH (26-32) pg MCHC (32-36) g/dL RDW (11.5-14.0) % Plt Count (150-450) x10^3/uL MPV (7.5-11.0) fL Gran % (36.0-66.0) % Immature Gran % (Auto) (0.00-0.4) % Nucleat RBC Rel Count (0.00-0.1) % Eos # (Auto) (0-0.5) x10^3/uL Immature Gran # (Auto) (0.00-0.03) x10^3u/L Absolute Lymphs (auto) (1.0-4.6) x10^3/uL Absolute Monos (auto) (0.0-1.3) x10^3/uL Absolute Nucleated RBC (0.00-0.01) x10^3u/L Lymphocytes % (24.0-44.0) % Monocytes % (0.0-12.0) % Eosinophils % (0.00-5.0) % Basophils % (0.0-0.4) % Absolute Granulocytes (1.4-6.9) x10^3/uL Basophils # (0-0.4) x10^3/uL PT (9.4-12.5) SECONDS INR (0.8-3.0) Sodium (137-145) mmol/L Potassium (3.5-5.1) mmol/L Chloride (98-107) mmol/L Carbon Dioxide (22-30) mmol/L Anion Gap (5-15) MEQ/L BUN (9-20) mg/dL Creatinine (0.66-1.25) mg/dL Estimated GFR ML/MIN Glucose (74-106) mg/dL Lactic Acid 1.4 (0.4-2.0) Calcium (8.4-10.2) mg/dL Total Bilirubin (0.2-1.3) mg/dL AST (17-59) U/L ALT (0-50) U/L Alkaline Phosphatase (38-126) U/L Serum Total Protein (6.3-8.2) g/dL Albumin (3.5-5.0) g/dL Lipase (23-300) U/L Urine Color Yellow (Yellow) Urine Appearance Cloudy A (Clear) Urine pH 6.5 (4.6-8.0) Ur Specific [place] 1.020 (1.005-1.030) Urine Protein 30 (Negative) Urine Glucose (UA) 500 A (Negative) mg/dL Urine Ketones Trace A (Negative) Urine Blood Large A (Negative) Urine Nitrite Positive A (Negative) Urine Bilirubin Negative (Negative) Urine Urobilinogen 0.2 (0.2) mg/dL Ur Leukocyte Esterase Moderate A (Negative) U Hyaline Cast (Auto) NONE SEEN (0-2) /LPF Urine Microscopic RBC 51-100 A (0-5) /HPF Urine Microscopic WBC >100 A (0-5) /HPF Ur Epithelial Cells None Seen (None Seen) /HPF Calcium Oxalate Crystal 0-2 A (None Seen) /HPF Urine Bacteria Many A (None Seen) /HPF Urine Yeast (Budding) (None Seen) /HPF Urine Culture Reflexed YES (NO) - Progress Progress: improved Progress Note: 06/20/23 18:53 58-year-old is evaluated for lower abdominal pain and UTI symptoms with he maturia and some headache. Patient is on Coumadin. Given fluids, refused/declined pain medication. Workup showed normal white count, fairly unremarkable chemistries. Normal lipase. Does have UTI, given a dose of Rocephin. Obtained CT head which is negative and patient is headache free without any intervention on reevaluation. Abdominal pain is better as well after fluids. CT abdomen pelvis negative for any acute intra-abdominal findings in the lower abdomen/pelvic area. I believe patient has hemorrhagic cystitis and will continue with Keflex to go home. Since patient is taking Coumadin, he is advised to call his Coumadin clinic tomorrow for frequent checks of INR and possible needs adjustment in dose of medications to avoid any bleeding from supratherapeutic INR. Discussed signs symptoms of worsening needing return to ER which he seems understanding. Stable for discharge. Counseled pt/family regarding: lab results, diagnosis, need for follow-up, rad results Medical Desision Making - Diagnostic Testing Diagnostic test were ordered, analyzed, and reviewed by me: Yes Radiological Interpretation: Reviewed by me, Teleradiologist Report - Risk of complications The pt has a mod risk of morbidity or mortality based on: Need for prescription drug management - Departure Departure Disposition: Home Clinical Impression: Acute hemorrhagic cystitis, Headache Condition: Stable Critical Care Time: No Referrals: RAUL HOLLINGSWORTH MD [Primary Care Provider] - Follow up with PCP 2 days Instructions: Severe Abdominal Pain, Adult (DC), Urinary tract infections in adults Additional Instructions: Take Tylenol as needed for pain. Follow-up with your primary care and warfarin clinic as you probably need adjustment in dose of your warfarin while being on antibiotics and needs frequent monitoring of INR to avoid bleeding. Return to ER for intractable abdominal pain/headache, chest pain palpitations or shortness of breath or if having gross blood in the urine/stool etc. Prescriptions: Cephalexin Mh 500 mg [Keflex 500 mg] 500 mg PO TID #21 cap
[2023-06-20] MEDS ORDERED: ROCEPHIN 2 Gm-D5w 50ML BAG** 2 G/50 ML IVPB IV ONE (17:41)
--- NOTE | 2023-06-20 18:16 | XRAY ---
CLINICAL HISTORY:LOWER ABD PAIN COMPARISON:10/27/2022 TECHNIQUE:A CT scan of the abdomen and pelvis was performed without IV contrast. Coronal and sagittal reconstructive images were also obtained. FINDINGS: Abdomen: Post-surgical changes are seen at the left hemiabdomen involving a segment of the small bowel loop, likely jejunum with a maximum diameter of 4.5 cm. The rest of the small bowel loops are unremarkable. The liver is normal in size measuring 16.0 cm craniocaudally. No diffuse or focal parenchymal abnormality. The portal vein, intrahepatic biliary radicals, and the bile ducts are normal. The spleen, pancreas, and adrenal glands are unremarkable. The right kidney is relatively small with multiple areas of parenchymal thinning and scarring. The left kidney is normal in size and shape. A focal cortical thinning is seen at the inferior pole of the left kidney. Few cortical cysts are seen bilaterally measuring up to 7.1 mm. Few hypodense wedge-shaped areas are again seen at the lower pole of the left kidney, likely suggesting old infarcts. The gallbladder is contracted but shows no definite stones. There is no evidence of wall thickening/ pericholecystic collection. Multiple diverticula are seen in the sigmoid. The ascending colon, the transverse colon, the descending colon, visualized small bowel loops are unremarkable. The appendix is normal. There is no evidence of significant enlargement of the mesenteric or retroperitoneal lymph nodes. Pelvis: The urinary bladder is unremarkable. The prostate gland is normal in size with calcification. The pelvic vasculature is unremarkable. No evidence of pelvic lymphadenopathy. Degenerative osseous changes of the spine are noted. IMPRESSION: 1. Post-surgical changes at the left hemiabdomen involving a segment of the small bowel loop, likely jejunum with a maximum diameter of 4.5 cm. The rest of the small bowel loops are unremarkable. 2. 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 3. Bilateral renal cysts. 4. Colonic diverticulosis with no signs of diverticulitis. 5. The rest of the findings as detailed above. Electronically Signed by: Kellee Maravilla MD. (06/20/2023 18:11:59 EST)
[2023-06-20 19:28] VITALS: BP 129/94; PULSE 70; RESP 20; O2SAT 98
== END 2023-06-20 19:28 | disposition home or self-care (01) ==
LOC: ED 15:12
DX: N30.01 Acute cystitis with hematuria (principal); R51.9 Headache, unspecified; R10.31 Right lower quadrant pain; R10.2 Pelvic and perineal pain; R35.0 Frequency of micturition; R30.0 Dysuria; R11.0 Nausea; E11.9 Type 2 diabetes mellitus without complications; Z79.01 Long term (current) use of anticoagulants; Z79.84 Long term (current) use of oral hypoglycemic drugs; Z28.310 Unvaccinated for COVID-19
CPT/HCPCS: 36000; 36415; 70450; 74177; 80053; 81001; 83605; 83690; 85025; 85610; 87077; 87086; 87186; 96360; 96365; 99284; J0696